=== PATIENT | male | born 1995 | race Two or more races ===

== ENCOUNTER 2025-01-12 14:52 | Emergency (ER) | payer MEDICAID, OTHER ==
[~2025-01-12] VITALS: Ht 177.8 cm; Wt 74.5 kg
[2025-01-12 14:55] VITALS: BP 135/98; PULSE 73; RESP 16; TEMP 98; O2SAT 99
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
[2025-01-12] MEDS ORDERED: IBUP-1455 PO (16:26)
== END 2025-01-12 16:42 | disposition home or self-care (01) ==
LOC: ER 14:52
DX: M79.641 Pain in right hand (principal); F07.81 Postconcussional syndrome; V43.52XA Car driver injured in collision with other type car in traffic accident, initial encounter; Y93.89 Activity, other specified; Y92.410 Unspecified street and highway as the place of occurrence of the external cause; Y99.8 Other external cause status
CPT/HCPCS: 73130

== ENCOUNTER 2025-01-13 12:20 | Emergency (ER) | payer MEDICAID ==
[~2025-01-13] VITALS: Ht 177.8 cm; Wt 75.0 kg
[~2025-01-13 12:20] MED LIST: IBUP-1455 PO
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
[2025-01-13 13:38] VITALS: BP 118/76; PULSE 68; RESP 16; TEMP 98.7; O2SAT 97
== END 2025-01-13 13:43 | disposition home or self-care (01) ==
LOC: ER 12:20
DX: R42 Dizziness and giddiness (principal); F07.81 Postconcussional syndrome